=== PATIENT | female | born 1955 | race Caucasian/White ===

== ENCOUNTER 2023-10-23 10:55 | Inpatient (IN) | payer OTHER ==
[~2023-10-23] VITALS: Ht 152.4 cm; Wt 108.9 kg
[2023-10-23 11:00] VITALS: BP 128/64; PULSE 88; RESP 18; TEMP 98; O2SAT 93
[2023-10-23 12:49] LABS: BASOPHILS % (AUTO) 0.2 % (0.0-2.0); EOSINOPHILS # (AUTO) 0.1 K/uL (0-0.4); EOSINOPHILS % (AUTO) 0.9 % (0.0-4.0); HEMATOCRIT 23.9 % (36-48); HEMOGLOBIN 7.8 g/dL (12.0-16.0); LYMPHOCYTES % (AUTO) 13.5 % (20.5-51.1); MEAN CORPUSCULAR HEMOGLOBIN 32 pg (27-31); MEAN CORPUSCULAR HGB CONC 33 g/dL (33-37); MEAN CORPUSCULAR VOLUME 96.5 fL (80-94); MONOCYTES # (AUTO) 0.7 K/uL (0.8-1.0); MONOCYTES % (AUTO) 9.1 % (1.7-9.3); NEUTROPHILS # (AUTO) 5.5 K/uL (1.8-7.7); NEUTROPHILS % (AUTO) 76.3 % (42.2-75.2); PLATELET COUNT (AUTO) 326 K/uL (140-450); RED BLOOD CELL COUNT(AUTO) 2.47 MIL/uL (4.20-5.40); RED CELL DISTRIBUTION WIDTH 14.2 % (11.6-13.7); WHITE BLOOD COUNT (AUTO) 7.2 K/uL (4.8-10.8)
[2023-10-23 13:25] LABS: BLOOD GAS PH 7.365 (7.35-7.45)
[2023-10-23 13:26] LABS: BLOOD GAS BASE EXCESS 3.4 mmol/L (-2.0-2.0); BLOOD GAS HCO3 29.6 mmol/L (22-26); BLOOD GAS PO2 68.5 mmHg (75-100)
[2023-10-23 13:27] LABS: BLOOD GAS O2 SAT% 93.7 % (92.0-98.5)
[2023-10-23] MEDS ORDERED: METF-346 PO (13:54)
[2023-10-23] MEDS ORDERED: GABA300T36 (13:55)
[2023-10-23] MEDS ORDERED: LEVO0.0211 PO (13:55)
[2023-10-23] MEDS ORDERED: PANT40EC56 PO (13:55)
[2023-10-23] MEDS ORDERED: HYDR-4922 PO (13:55)
[2023-10-23] MEDS ORDERED: AMLO-3 PO (13:55)
[2023-10-23] MEDS ORDERED: INSU100I34 SUBQ (13:55)
[2023-10-23] MEDS ORDERED: METF-713 PO (13:55)
[2023-10-23] MEDS ORDERED: NOVR (13:55)
[2023-10-23] MEDS ORDERED: FENO54TA4 PO (13:55)
[2023-10-23] MEDS ORDERED: AMOX1TAB15 PO (13:55)
[2023-10-23] MEDS ORDERED: TAMS0.4C97 PO (13:55)
[2023-10-23] MEDS ORDERED: SIMV-30 PO (13:55)
[2023-10-23] MEDS ORDERED: BACL10TA4 PO (13:55)
[2023-10-23] MEDS ORDERED: INSU100S22 SUBQ (13:55)
[2023-10-23] MEDS ORDERED: HUMSLIDE SUBQ (13:55)
[2023-10-23] MEDS ORDERED: FURO40TA9 PO (13:55)
[2023-10-23] MEDS ORDERED: HYDR-1095 PO (13:55)
[2023-10-23] MEDS ORDERED: POTA10TA81 PO (13:55)
[2023-10-23] MEDS ORDERED: ALBU10.7 (13:55)
[2023-10-23] MEDS ORDERED: OMEP-283 PO (13:55)
[2023-10-23] MEDS ORDERED: INSU100S5 (13:55)
[2023-10-23] MEDS ORDERED: UMEC62.5 INH (13:55)
[2023-10-23] MEDS ORDERED: LOSA100T52 PO (13:55)
[2023-10-23] MEDS ORDERED: ONDA4TAB12 PO (13:55)
[2023-10-23] MEDS ORDERED: FURO20TA8 PO (13:55)
[2023-10-23] MEDS ORDERED: UMEC1POW INH (13:55)
[2023-10-23] MEDS ORDERED: HUM SUBQ (13:55)
[2023-10-23 14:08] LABS: ALANINE AMINOTRANSFERASE 15 U/L (12-78); ALBUMIN 2.6 g/dL (3.4-5.0); ALKALINE PHOSPHATASE 65 U/L (50-136); ASPARTATE AMINOTRANSFERASE 9 U/L (15-37); BILIRUBIN,DIRECT 0.1 mg/dL (0.0-0.3); TOTAL BILIRUBIN 0.2 mg/dL (0.0-1.0); TOTAL PROTEIN, SERUM 6.6 g/dL (6.4-8.2)
[2023-10-23 14:17] LABS: ANION GAP 11.3 (8-16); CALCIUM 8.3 mg/dL (8.5-10.1); CARBON DIOXIDE 32.6 mmol/L (21-32); CREATININE 1.5 mg/dL (0.6-1.3); POTASSIUM 3.9 mmol/L (3.5-5.1)
[2023-10-23] MEDS ORDERED: DEXTROSE 50% 50 ML SYR IVP PRN (14:55)
[2023-10-23] MEDS: BLOOD GLUCOSE MONITORING 1 DEV DEV FS SCH (15:51)
[2023-10-23] MEDS: NACL 0.9% 1,000 ML IV SCH (16:14)
[2023-10-23 17:05] LABS: APPEARANCE,URINE SLIGHTLY CLOUDY (CLEAR); BILIRUBIN,URINE NEGATIVE (NEGATIVE); BLOOD, URINE 1+ (NEGATIVE); COLOR,URINE YELLOW (YELLOW); LEUKOCYTE ESTERASE ,URINE 1+ (NEGATIVE); NITRITE, URINE POSITIVE (NEGATIVE); PH,URINE 6.5 (5.0-9.0); PROTEIN,URINE TRACE (NEGATIVE); UGLUCOSE NEGATIVE (NEGATIVE)
[2023-10-23 17:07] LABS: BACTERIA,URINE 3+ /HPF (None Seen); MUCUS,URINE None Seen /LPF (None Seen); RBC,URINE 0-5 /HPF (0-5); SQUAMOUS EPITHELIAL CELL,UR 4-10 (MOD) /LPF (0-3 (FEW))
[2023-10-23 17:36] VITALS: PULSE 86; RESP 18; O2SAT 98
[2023-10-23 18:00] VITALS: BP 106/44; PULSE 86; TEMP 97.4; O2SAT 98
[2023-10-23 20:00] VITALS: BP 105/46; PULSE 91; PULSE 95; RESP 20; TEMP 97; O2SAT 100
[2023-10-23] MEDS: PANTOPRAZOLE 40 MG TABEC PO SCH (20:40)
[2023-10-23] MEDS: SIMVASTATIN 20 MG TAB PO SCH (20:40)
[2023-10-23] MEDS: INSULIN LISPRO SLIDING SCALE 100 UNITS/ML VIAL SUBQ PRN (20:47)
[2023-10-24] VITALS: BP 106/47; PULSE 85; PULSE 91; RESP 20; TEMP 97.9; O2SAT 97
[2023-10-24 04:00] VITALS: BP 102/47; PULSE 83; PULSE 93; RESP 20; TEMP 96.8; O2SAT 99
[2023-10-24] MEDS: LEVOTHYROXINE 0.025 MG TAB PO SCH (05:33)
[2023-10-24] MEDS ORDERED: AZITHROMYCIN 500 MG in DEXTROSE 5% 250 ML IV SCH (07:00)
[2023-10-24 07:26] LABS: BASOPHILS % (AUTO) 0.2 % (0.0-2.0); EOSINOPHILS # (AUTO) 0.1 K/uL (0-0.4); EOSINOPHILS % (AUTO) 1.1 % (0.0-4.0); HEMATOCRIT 22.1 % (36-48); HEMOGLOBIN 7.3 g/dL (12.0-16.0); LYMPHOCYTES # (AUTO) 1.4 K/uL (2.5-16.5); LYMPHOCYTES % (AUTO) 16.3 % (20.5-51.1); MEAN CORPUSCULAR HEMOGLOBIN 32 pg (27-31); MEAN CORPUSCULAR HGB CONC 33 g/dL (33-37); MEAN CORPUSCULAR VOLUME 96.6 fL (80-94); MONOCYTES # (AUTO) 0.7 K/uL (0.8-1.0); MONOCYTES % (AUTO) 8.6 % (1.7-9.3); NEUTROPHILS # (AUTO) 6.2 K/uL (1.8-7.7); NEUTROPHILS % (AUTO) 73.8 % (42.2-75.2); PLATELET COUNT (AUTO) 343 K/uL (140-450); RED BLOOD CELL COUNT(AUTO) 2.29 MIL/uL (4.20-5.40); RED CELL DISTRIBUTION WIDTH 14.4 % (11.6-13.7); WHITE BLOOD COUNT (AUTO) 8.4 K/uL (4.8-10.8)
[2023-10-24 07:33] LABS: ANION GAP 8.7 (8-16); CALCIUM 7.9 mg/dL (8.5-10.1); CARBON DIOXIDE 33.5 mmol/L (21-32); CREATININE 1.5 mg/dL (0.6-1.3); POTASSIUM 4.2 mmol/L (3.5-5.1)
[2023-10-24 08:00] VITALS: BP 107/42; PULSE 81; PULSE 85; PULSE 96; RESP 18; RESP 20; TEMP 96.7; O2SAT 98; O2SAT 99
[2023-10-24] MEDS ORDERED: LEVOTHYROXINE 0.025 MG TAB PO SCH (09:00)
[2023-10-24] MEDS ORDERED: NON-FORMULARY ITEM (Fenofibrate 1 TAB) PO SCH (09:00)
[2023-10-24] MEDS: amLODIPine 5 MG TAB PO SCH (09:00)
[2023-10-24] MEDS: FUROSEMIDE 20 MG TAB PO SCH (09:00)
[2023-10-24] MEDS: TAMSULOSIN 0.4 MG CAP PO SCH (09:47)
[2023-10-24] MEDS: FENOFIBRATE 48 MG TAB PO SCH (09:47)
[2023-10-24 12:00] VITALS: BP 100/40; PULSE 92; PULSE 95; RESP 20; TEMP 96.9; O2SAT 100
[2023-10-24 16:00] VITALS: BP 104/36; PULSE 86; PULSE 89; RESP 20; TEMP 97.8; O2SAT 98
[2023-10-24] MEDS: ACETAMINOPHEN 325 MG TAB PO PRN (19:47)
[2023-10-24 19:51] LABS: URINE TPRO CREAT RATIO 0.7 (0-0.20)
[2023-10-24 20:00] VITALS: BP 140/68; PULSE 100; PULSE 103; RESP 20; TEMP 97.5; O2SAT 98
[2023-10-25] VITALS (11 sets, daily range): BP systolic 105–140; BP diastolic 43–64; PULSE 80–100; RESP 16–22; TEMP 96.8–98.3; O2SAT 90–99
[2023-10-25 07:12] LABS: BASOPHILS % (AUTO) 0.3 % (0.0-2.0); EOSINOPHILS # (AUTO) 0.1 K/uL (0-0.4); EOSINOPHILS % (AUTO) 1.3 % (0.0-4.0); HEMATOCRIT 22.5 % (36-48); HEMOGLOBIN 7.5 g/dL (12.0-16.0); LYMPHOCYTES # (AUTO) 1.5 K/uL (2.5-16.5); LYMPHOCYTES % (AUTO) 19.9 % (20.5-51.1); MEAN CORPUSCULAR HEMOGLOBIN 32 pg (27-31); MEAN CORPUSCULAR HGB CONC 33 g/dL (33-37); MEAN CORPUSCULAR VOLUME 96.8 fL (80-94); MONOCYTES # (AUTO) 0.7 K/uL (0.8-1.0); MONOCYTES % (AUTO) 9.6 % (1.7-9.3); NEUTROPHILS # (AUTO) 5.2 K/uL (1.8-7.7); NEUTROPHILS % (AUTO) 68.9 % (42.2-75.2); PLATELET COUNT (AUTO) 367 K/uL (140-450); RED BLOOD CELL COUNT(AUTO) 2.33 MIL/uL (4.20-5.40); RED CELL DISTRIBUTION WIDTH 14.1 % (11.6-13.7); WHITE BLOOD COUNT (AUTO) 7.6 K/uL (4.8-10.8)
[2023-10-25 07:38] LABS: CALCIUM 8.1 mg/dL (8.5-10.1); CARBON DIOXIDE 32.9 mmol/L (21-32); CREATININE 1.4 mg/dL (0.6-1.3); POTASSIUM 3.9 mmol/L (3.5-5.1)
[2023-10-25] MEDS: AZITHROMYCIN 500 MG in DEXTROSE 5% 250 ML IV SCH (09:08)
[2023-10-25] MEDS: ALBUTEROL 0.083% 2.5 MG/3 ML NEBU INH PRN (17:08)
[2023-10-26] VITALS (8 sets, daily range): BP systolic 126–152; BP diastolic 51–91; PULSE 20–98; RESP 18–20; TEMP 96.9–99.5; O2SAT 93–99
[2023-10-26] MEDS ORDERED: MERO1VIA15 IV (11:23)
[2023-10-26] MEDS ORDERED: MEROPENEM 1,000 MG in NACL 0.9% 50 ML IV SCH (21:00)
[2023-10-29] MEDS ORDERED: FERR75LI22 PO (00:55)
[2023-10-29] MEDS ORDERED: NA P133E2 RC (00:55)
[2023-10-29] MEDS ORDERED: ACET-8905 PO (00:55)
[2023-10-29] MEDS ORDERED: AMLO5TAB PO (00:55)
[2023-10-29] MEDS ORDERED: CEFT1SOL1 IV (00:55)
[2023-10-29] MEDS ORDERED: FURO-572 PO (00:55)
[2023-10-29] MEDS ORDERED: TRI48 PO (00:55)
[2023-10-29] MEDS ORDERED: ASCO-5 PO (00:55)
[2023-10-29] MEDS ORDERED: MEDI30SO PO (00:55)
[2023-10-29] MEDS ORDERED: UMEC1POW IH (00:55)
[2023-10-29] MEDS ORDERED: GABA300C PO (00:55)
[2023-10-29] MEDS ORDERED: CRAN450T5 PO (00:55)
[2023-10-29] MEDS ORDERED: PANT40EC56 PO (00:55)
[2023-10-29] MEDS ORDERED: NUTR30LI2 PO (00:55)
[2023-10-29] MEDS ORDERED: INSU100S5 IJ (00:55)
[2023-10-29] MEDS ORDERED: SYN.05 PO (00:55)
[2023-10-29] MEDS ORDERED: METF-1139 PO (00:55)
[2023-10-29] MEDS ORDERED: BISA-279 RC (00:55)
[2023-10-29] MEDS ORDERED: LACT1CAP92 PO (00:55)
[2023-10-29] MEDS ORDERED: BACL10TA4 PO (00:55)
[2023-10-29] MEDS ORDERED: SIMV-372 PO (00:55)
[2023-10-29] MEDS ORDERED: ATA25 PO (00:55)
[2023-10-29] MEDS ORDERED: LOSA-272 PO (00:55)
[2023-10-29] MEDS ORDERED: DOCU-299 PO (00:55)
[2023-10-29] MEDS ORDERED: ALBU0.63 NEB (00:55)
[2023-10-29] MEDS ORDERED: MULT-2171 PO (00:55)
[2023-10-29] MEDS ORDERED: MAGN400S60 PO (00:55)
[2023-10-29] MEDS ORDERED: ONDA-188 SL (00:55)
[2023-10-29] MEDS ORDERED: ACET-2619 PO (00:55)
[2023-10-29] MEDS ORDERED: POTA10TA70 PO (00:55)
[2023-10-29] MEDS ORDERED: MERO1VIA15 IV (11:59)
== END 2023-10-26 16:45 | DRG 189 ==
LOC: MED 10:55 → MTU 14:51
PROVIDERS: ADMIT Student in an Organized Health Care Education/Training Program; ATTEND Student in an Organized Health Care Education/Training Program
DX: J96.20 Acute and chronic respiratory failure, unspecified whether with hypoxia or hypercapnia (principal); N39.0 Urinary tract infection, site not specified; Z68.42 Body mass index [BMI] 45.0-49.9, adult; I13.0 Hypertensive heart and chronic kidney disease with heart failure and stage 1 through stage 4 chronic kidney disease, or unspecified chronic kidney disease; J44.9 Chronic obstructive pulmonary disease, unspecified; G47.33 Obstructive sleep apnea (adult) (pediatric); T40.695A Adverse effect of other narcotics, initial encounter; E66.9 Obesity, unspecified; E78.5 Hyperlipidemia, unspecified; I50.9 Heart failure, unspecified; Z79.891 Long term (current) use of opiate analgesic; Z79.899 Other long term (current) drug therapy; Y92.89 Other specified places as the place of occurrence of the external cause; R41.82 Altered mental status, unspecified; E11.22 Type 2 diabetes mellitus with diabetic chronic kidney disease; Z87.891 Personal history of nicotine dependence
CPT/HCPCS: 36415; 36600; 71045; 80048; 80076; 81001; 82570; 82803; 82948; 83880; 84484; 85025; 87081; 87086; 87186; 93005; 94010; 94640; 97110; 97163-GP; 97530; 99285; J0456; J0696; J1815; J7060; J7613